=== PATIENT | male | born 1960 | race Caucasian/White ===

== ENCOUNTER 2019-05-27 10:56 | Emergency (ER) | payer BC ==
[2019-05-27] MEDS ORDERED: Meclizine HCl 25 MG TAB ONE (11:38)
== END 2019-05-27 11:50 | disposition home or self-care (01) ==
LOC: NAV ERS 10:56 → EDBD 10:56 → NAV ERS 11:50
DX: H81.11 Benign paroxysmal vertigo, right ear (principal); H93.19 Tinnitus, unspecified ear; H91.93 Unspecified hearing loss, bilateral; E78.5 Hyperlipidemia, unspecified; I10 Essential (primary) hypertension; F17.220 Nicotine dependence, chewing tobacco, uncomplicated; Z79.899 Other long term (current) drug therapy
CPT/HCPCS: 93005; J8597